=== PATIENT | male | born 1975 | race Caucasian/White ===

== ENCOUNTER 2016-11-01 17:48 | Emergency (ER) | payer SELFPAY ==
[~2016-11-01] VITALS: Ht 172.7 cm; Wt 104.5 kg
[2016-11-01 19:15] VITALS: BP 124/73
[2016-11-01] MEDS ORDERED: DEXAMETHASONE SOD PHOS 4 MG/ML 5 ML VIAL IM ONE (19:30)
[2016-11-01] MEDS ORDERED: ACYCLOVIR 200 MG CAPSULE PO ONE (19:30)
== END 2016-11-01 19:43 | disposition home or self-care (01) ==
LOC: EMS 17:51
DX: G51.0 Bell's palsy (principal)
CPT/HCPCS: 70450; 96372; 99285; J1100